=== PATIENT | female | born 1995 ===

== ENCOUNTER 2024-09-29 21:59 | Emergency (ER) | payer MEDICAID ==
[2024-09-29] MEDS: Lidocaine 1% 5 ML VIAL INJECT ONE (23:07)
[2024-09-29] MEDS: Diphtheria,Pertussis(Acell),Tetanus Vaccine 0.5 ML Syringe IM ONE (23:08)
[2024-09-29] MEDS: Bacitracin Oint 1 GM U/D Packet TOP ONE (23:08)
[2024-09-29] MEDS: Ketorolac 30 MG/ML SDV IM ONE (23:19)
== END 2024-09-30 01:45 | disposition home or self-care (01) ==
LOC: DL.ED 21:59
DX: S11.91XA Laceration without foreign body of unspecified part of neck, initial encounter (principal); F10.120 Alcohol abuse with intoxication, uncomplicated; Z23 Encounter for immunization; Z91.018 Allergy to other foods; X99.9XXA Assault by unspecified sharp object, initial encounter; Y93.89 Activity, other specified; Y90.9 Presence of alcohol in blood, level not specified
CPT/HCPCS: 12001; 73562; 90471; 90715; 96372; 99284; A9270; J1885; J3490